=== PATIENT | male | born 1965 | race Caucasian/White ===

== ENCOUNTER 2021-10-01 16:04 | Emergency (ER) | payer SELFPAY ==
[~2021-10-01] VITALS: Ht 182.9 cm; Wt 89.0 kg
[2021-10-01] MEDS ORDERED: SENOKOT S1 TAB PO (16:32)
[2021-10-01] MEDS ORDERED: MIRALAX17 GM PO (16:32)
[2021-10-01] MEDS ORDERED: GABAPENTIN100 MG PO (16:32)
[2021-10-01] MEDS ORDERED: ASPIRIN81 MG PO (16:33)
[2021-10-01] MEDS ORDERED: FLEXERIL5 M1 PO (16:33)
[2021-10-01] MEDS ORDERED: OXYCODONE10 M1 PO (16:34)
[2021-10-01] MEDS ORDERED: PERCOCET 5/325M1 TAB PO (16:34)
[2021-10-01] MEDS ORDERED: PERCOCET 10/31 COMBO PO (16:42)
[2021-10-01 16:44] VITALS: BP 140/91
== END 2021-10-01 16:50 | disposition home or self-care (01) | DRG 948 ==
LOC: ED 16:04
DX: G89.18 Other acute postprocedural pain (principal); S82.202D Unspecified fracture of shaft of left tibia, subsequent encounter for closed fracture with routine healing; S82.402D Unspecified fracture of shaft of left fibula, subsequent encounter for closed fracture with routine healing; V29.9XXD Motorcycle rider (driver) (passenger) injured in unspecified traffic accident, subsequent encounter; Z86.73 Personal history of transient ischemic attack (TIA), and cerebral infarction without residual deficits

== ENCOUNTER 2021-10-19 19:31 | Emergency (ER) | payer SELFPAY ==
[~2021-10-19] VITALS: Ht 182.9 cm; Wt 88.0 kg
[~2021-10-19 19:31] MED LIST: ASPIRIN81 MG PO; FLEXERIL5 M1 PO; GABAPENTIN100 MG PO; MIRALAX17 GM PO; OXYCODONE10 M1 PO; PERCOCET 10/31 COMBO PO; PERCOCET 5/325M1 TAB PO; SENOKOT S1 TAB PO
[2021-10-19] MEDS ORDERED: GABAPENTIN600 MG PO (20:32)
[2021-10-19] MEDS ORDERED: PERCOCET 10/31 COMBO PO (20:32)
[2021-10-19 21:50] VITALS: BP 138/76
== END 2021-10-19 21:45 | disposition home or self-care (01) | DRG 948 ==
LOC: ED 19:31
DX: G89.18 Other acute postprocedural pain (principal); Z86.73 Personal history of transient ischemic attack (TIA), and cerebral infarction without residual deficits

== ENCOUNTER 2022-04-23 02:19 | Emergency (ER) | payer SELFPAY ==
[~2022-04-23] VITALS: Ht 182.9 cm; Wt 88.0 kg
[~2022-04-23 02:19] MED LIST changes: +GABAPENTIN600 MG PO
[2022-04-23 02:24] VITALS: BP 182/89
[2022-04-23] MEDS ORDERED: OXYCODONE15 MG PO (02:28)
[2022-04-23] MEDS ORDERED: LYRICA50 MG PO (02:31)
[2022-04-23] MEDS ORDERED: CEPHALEXIN500 MG PO (02:32)
[2022-04-23] MEDS ORDERED: ELAVIL25 M1 PO (02:33)
[2022-04-23 02:41] VITALS: BP 162/87
[2022-04-23 02:51] LABS: HEMATOCRIT 43.7 % (39.0-50.0); HEMOGLOBIN 14.5 g/dl (14.0-18.0); IMMATURE GRANULOCYTES 0.2 % (0.0-5.0); MEAN CELL VOLUME 88.1 fL CALC (80.0-100.0); MEAN CORPUSCULAR HGB 29.2 pG CALC (26.0-32.0); MEAN CORPUSCULAR HGB CONC 33.2 g/dL CAL (32.0-36.0); NEUT# 3.12 thou/uL (1.82-7.42); RED BLOOD COUNT 4.96 mill/uL (4.70-6.10); RED CELL DISTRI WIDTH 14.5 % (11.5-15.5)
[2022-04-23 03:00] VITALS: BP 157/94
[2022-04-23 03:02] LABS: PROTHROMBIN TIME 10.4 SECONDS (9.0-12.5)
[2022-04-23 03:15] LABS: URINE BILIRUBIN - DIPSTICK NEGATIVE (NEGATIVE); URINE BLOOD DIPSTICK NEGATIVE (NEGATIVE); URINE COLOR YELLOW; URINE GLUCOSE - DIPSTICK NEGATIVE (NEGATIVE); URINE KETONE NEGATIVE (NEGATIVE); URINE LEUK ESTERASE NEGATIVE (NEGATIVE); URINE PH 7.5 (4.5-8.0); URINE PROTEIN - DIPSTICK NEGATIVE (NEG-TRACE); URINE UROBILINOGEN - DIPSTICK 0.2 E.U./dL (0.2)
[2022-04-23 03:16] LABS: D-DIMER 1.02 mg/L (0.19-0.60)
[2022-04-23 03:17] LABS: URINE NITRITE - DIPSTICK NEGATIVE (Negative)
[2022-04-23 03:30] VITALS: BP 155/95
[2022-04-23 03:35] LABS: ALBUMIN 4.1 g/dL (3.2-5.0); ALKALINE PHOSPHATASE 92 u/l (38-126); ANION GAP 9 (6-22 (CALC)); BILIRUBIN, TOTAL 0.5 mg/dL (0.0-1.4); BUN 19 mg/dL (9-20); BUN/CREATININE RATIO 23 (12-20 (CALC)); CARBON DIOXIDE 29 mmol/l (22-30); CHLORIDE 102 mmol/l (95-108); CREATININE 0.8 mg/dL (0.7-1.3); GFR FOR AFR.AMER. > 60 ML/MIN (>=60 (CALC)); GFR OTHER RACES > 60 ML/MIN (>=60 (CALC)); MAGNESIUM 1.9 mg/dL (1.6-2.3); POTASSIUM 3.7 mmol/l (3.5-5.1); SGOT/AST 29 u/l (17-59); SODIUM 136 mmol/l (137-146); TOTAL PROTEIN 6.6 g/dL (6.3-8.2)
[2022-04-23 03:47] LABS: MYOGLOBIN 55 ng/mL (0 - 121)
[2022-04-23 05:44] VITALS: BP 155/95
== END 2022-04-23 05:49 | disposition home or self-care (01) | DRG 880 ==
LOC: ED 02:19
PROVIDERS: Family Medicine
DX: F41.9 Anxiety disorder, unspecified (principal); Z86.73 Personal history of transient ischemic attack (TIA), and cerebral infarction without residual deficits
CPT/HCPCS: J2060; Q9967

== ENCOUNTER 2022-06-10 10:02 | Emergency (ER) | payer SELFPAY ==
[2022-06-10] VITALS (10 sets, daily range): BP systolic 132–203; BP diastolic 66–166
[~2022-06-10] VITALS: Ht 182.9 cm; Wt 86.3 kg
[~2022-06-10 10:02] MED LIST changes: +CEPHALEXIN500 MG PO; +ELAVIL25 M1 PO; +LYRICA50 MG PO; +OXYCODONE15 MG PO
[2022-06-10 10:36] LABS: HEMATOCRIT 48.6 % (39.0-50.0); HEMOGLOBIN 15.5 g/dl (14.0-18.0); IMMATURE GRANULOCYTES 0.1 % (0.0-5.0); MEAN CORPUSCULAR HGB 29.4 pG CALC (26.0-32.0); MEAN CORPUSCULAR HGB CONC 31.9 g/dL CAL (32.0-36.0); NEUT# 11.1 thou/uL (1.82-7.42); RED BLOOD COUNT 5.28 mill/uL (4.70-6.10); RED CELL DISTRI WIDTH 14.1 % (11.5-15.5)
[2022-06-10 11:01] LABS: ALBUMIN 4.5 g/dL (3.2-5.0); BILIRUBIN, TOTAL 0.6 mg/dL (0.0-1.4); BUN 21 mg/dL (9-20); BUN/CREATININE RATIO 25 (12-20 (CALC)); CHLORIDE 111 mmol/l (95-108); CREATININE 0.8 mg/dL (0.7-1.3); GFR FOR AFR.AMER. > 60 ML/MIN (>=60 (CALC)); GFR OTHER RACES > 60 ML/MIN (>=60 (CALC)); POTASSIUM 3.9 mmol/l (3.5-5.1); SGOT/AST 25 u/l (17-59); SODIUM 142 mmol/l (137-146); TOTAL PROTEIN 7.6 g/dL (6.3-8.2)
[2022-06-10 11:13] LABS: ALKALINE PHOSPHATASE 142 u/l (38-126); ANION GAP 15 (6-22 (CALC)); CARBON DIOXIDE 20 mmol/l (22-30)
[2022-06-10 11:32] LABS: TSH, 3RD GENERATION 0.22 uIU/mL (0.47 - 4.68)
[2022-06-10] MEDS ORDERED: ATIVAN1 M1 PO (11:41)
== END 2022-06-10 12:03 | disposition home or self-care (01) | DRG 880 ==
LOC: ED 10:02
PROVIDERS: Family Medicine
DX: F41.9 Anxiety disorder, unspecified (principal); E05.90 Thyrotoxicosis, unspecified without thyrotoxic crisis or storm; Z87.820 Personal history of traumatic brain injury

== ENCOUNTER 2022-07-16 19:26 | Emergency (ER) | payer SELFPAY ==
[~2022-07-16] VITALS: Ht 182.9 cm; Wt 86.4 kg
[2022-07-16] VITALS (10 sets, daily range): BP systolic 128–158; BP diastolic 74–134
[~2022-07-16 19:26] MED LIST changes: +ATIVAN1 M1 PO
[2022-07-16 20:09] LABS: IMMATURE GRANULOCYTES 0.2 % (0.0-5.0); MEAN CELL VOLUME 86.9 fL CALC (80.0-100.0); MEAN CORPUSCULAR HGB 29.5 pG CALC (26.0-32.0); MEAN CORPUSCULAR HGB CONC 33.9 g/dL CAL (32.0-36.0); NEUT# 11.49 thou/uL (1.82-7.42); RED BLOOD COUNT 4.75 mill/uL (4.70-6.10); RED CELL DISTRI WIDTH 13.2 % (11.5-15.5)
[2022-07-16 20:13] LABS: HEMATOCRIT 41.3 % (39.0-50.0)
[2022-07-16 20:31] LABS: ALBUMIN 4.7 g/dL (3.2-5.0); ALKALINE PHOSPHATASE 142 u/l (38-126); ANION GAP 14 (6-22 (CALC)); BILIRUBIN, TOTAL 0.7 mg/dL (0.0-1.4); BUN 16 mg/dL (9-20); BUN/CREATININE RATIO 22 (12-20 (CALC)); CARBON DIOXIDE 22 mmol/l (22-30); CHLORIDE 110 mmol/l (95-108); CREATININE 0.7 mg/dL (0.7-1.3); ETHYL ALCOHOL 0 mg/dl (0-30); GFR FOR AFR.AMER. > 60 ML/MIN (>=60 (CALC)); GFR OTHER RACES > 60 ML/MIN (>=60 (CALC)); MAGNESIUM 2.2 mg/dL (1.6-2.3); POTASSIUM 3.9 mmol/l (3.5-5.1); SGOT/AST 22 u/l (17-59); SODIUM 142 mmol/l (137-146); TOTAL PROTEIN 7.2 g/dL (6.3-8.2)
[2022-07-16 21:01] LABS: TSH, 3RD GENERATION 0.61 uIU/mL (0.47 - 4.68)
[2022-07-16 22:07] LABS: URINE BILIRUBIN - DIPSTICK NEGATIVE (NEGATIVE); URINE BLOOD DIPSTICK NEGATIVE (NEGATIVE); URINE COLOR YELLOW; URINE GLUCOSE - DIPSTICK NEGATIVE (NEGATIVE); URINE KETONE NEGATIVE (NEGATIVE); URINE LEUK ESTERASE NEGATIVE (NEGATIVE); URINE PH 8.5 (4.5-8.0); URINE PROTEIN - DIPSTICK 30 mg/dL (NEG-TRACE); URINE SPECIFIC GRAVITY 1.025; URINE UROBILINOGEN - DIPSTICK 0.2 E.U./dL (0.2)
[2022-07-16 22:13] LABS: URINE NITRITE - DIPSTICK NEGATIVE (Negative)
[2022-07-16 22:19] LABS: URINE RBC 0-2 RBC/hpf (0-5); URINE WBC 0-2 WBC/hpf (0-5)
[2022-07-16] MEDS ORDERED: ATIVAN1 MG PO (23:03)
== END 2022-07-16 23:19 | disposition home or self-care (01) | DRG 880 ==
LOC: ED 19:26
PROVIDERS: Family Medicine
DX: F41.9 Anxiety disorder, unspecified (principal); F32.A Depression, unspecified; G89.18 Other acute postprocedural pain; Z87.820 Personal history of traumatic brain injury

== ENCOUNTER 2022-11-26 23:53 | Emergency (ER) | payer OTHER ==
[~2022-11-26] VITALS: Ht 182.9 cm; Wt 83.0 kg
[~2022-11-26 23:53] MED LIST changes: +ATIVAN1 MG PO
[2022-11-27 00:40] VITALS: BP 93/59
== END 2022-11-27 00:58 | disposition home or self-care (01) ==
LOC: ED 23:53
DX: F32.A Depression, unspecified (principal); S99.922D Unspecified injury of left foot, subsequent encounter; V86.96XD Unspecified occupant of dirt bike or motor/cross bike injured in nontraffic accident, subsequent encounter

== ENCOUNTER 2023-10-26 23:40 | Emergency (ER) | payer OTHER ==
[~2023-10-26] VITALS: Ht 182.9 cm; Wt 80.0 kg
[2023-10-26 23:49] VITALS: BP 142/79
[2023-10-27 00:06] VITALS: BP 127/72
[2023-10-27 00:16] VITALS: BP 131/70
[2023-10-27 00:17] LABS: BASO% 0.3 % (0-3); EOS% 5.4 % (0-8); HEMATOCRIT 39.7 % (39.0-50.0); HEMOGLOBIN 12.9 g/dl (14.0-18.0); IMMATURE GRANULOCYTES 0.1 % (0.0-5.0); LYMPH% 28.7 % (15-41); MEAN CELL VOLUME 91.3 fL CALC (80.0-100.0); MEAN CORPUSCULAR HGB 29.7 pG CALC (26.0-32.0); MEAN CORPUSCULAR HGB CONC 32.5 g/dL CAL (32.0-36.0); MONO% 9.4 % (2-13); NEUT# 4.08 thou/uL (1.82-7.42); NEUT% 56.1 % (42-76); RED BLOOD COUNT 4.35 mill/uL (4.70-6.10)
[2023-10-27 00:27] LABS: ALKALINE PHOSPHATASE 124 u/l (38-126); BILIRUBIN, TOTAL 0.5 mg/dL (0.2-1.3); BUN 24 mg/dL (9-20); BUN/CREATININE RATIO 24 (12-20 (CALC)); CHLORIDE 106 mmol/l (95-108); GFR FOR AFR.AMER. > 60 ML/MIN (>=60 (CALC)); GFR OTHER RACES > 60 ML/MIN (>=60 (CALC)); POTASSIUM 3.8 mmol/l (3.5-5.1); SODIUM 141 mmol/l (137-146); TOTAL PROTEIN 6.2 g/dL (6.3-8.2)
[2023-10-27 00:31] LABS: ANION GAP 12 (6-22 (CALC)); CARBON DIOXIDE 27 mmol/l (22-30); SGOT/AST 42 u/l (17-59)
[2023-10-27 00:41] LABS: ACT PARTIAL THROMBO TIME 22.7 SECONDS (20.0-32.5); INTERNATIONAL NORMALIZED RATIO 1.1 RATIO (0.7-1.3); PROTHROMBIN TIME 10.5 SECONDS (9.0-12.5)
[2023-10-27] MEDS ORDERED: PROCTOFOAM HC10 GM RE (01:52)
[2023-10-27 02:01] VITALS: BP 131/70
[2023-10-27] MEDS ORDERED: ANUCORT-HC25 M1 RE (10:57)
== END 2023-10-27 02:00 | disposition home or self-care (01) ==
LOC: ED 23:40
PROVIDERS: Family Medicine
DX: K62.5 Hemorrhage of anus and rectum (principal); M53.3 Sacrococcygeal disorders, not elsewhere classified

== ENCOUNTER 2024-07-02 20:35 | Emergency (ER) | payer OTHER ==
[~2024-07-02] VITALS: Ht 210.8 cm; Wt 81.0 kg
[~2024-07-02 20:35] MED LIST changes: +ANUCORT-HC25 M1 RE; +GOLYTELY PO; +MELOXICAM15 MG PO; +PRAZOSIN HCL2 M1 PO; +PROCTOFOAM HC10 GM RE; +STOOL SOFTENER; +SUBOXONE1 MI1 SL; +TRAZODONE50 MG PO; +VISTARIL 50MG C50 M1 PO; +WELLBUTRIN150 M1 PO; +[UNRECOGNIZED DRUG - OTHER]
[2024-07-02 20:57] VITALS: BP 130/72
[2024-07-02 21:00] VITALS: BP 125/70
[2024-07-02 21:15] VITALS: BP 122/80
[2024-07-02] MEDS ORDERED: SODIUM CHLORIDE 0.9% 1,000 ML IV ONE ×2 (21:15→22:15)
[2024-07-02] MEDS ORDERED: KETOROLAC TROMETHAMINE 30 MG/ML SDV IV ONE (21:15)
[2024-07-02 21:31] VITALS: BP 136/75
[2024-07-02 21:45] LABS: BASO% 0.5 % (0-3); EOS% 0.5 % (0-8); HEMATOCRIT 36.2 % (39.0-50.0); HEMOGLOBIN 12.6 g/dl (14.0-18.0); LYMPH% 13.3 % (15-41); MEAN CELL VOLUME 86.8 fL CALC (80.0-100.0); MEAN CORPUSCULAR HGB 30.2 pG CALC (26.0-32.0); MEAN CORPUSCULAR HGB CONC 34.8 g/dL CAL (32.0-36.0); MONO% 9.2 % (2-13); NEUT# 2.99 thou/uL (1.82-7.42); NEUT% 76.5 % (42-76); RED BLOOD COUNT 4.17 mill/uL (4.70-6.10); RED CELL DISTRI WIDTH 12.7 % (11.5-15.5)
[2024-07-02 21:55] LABS: ALBUMIN 3.6 g/dL (3.2-5.0); BILIRUBIN, TOTAL 0.9 mg/dL (0.2-1.3); CREATININE 0.9 mg/dL (0.7-1.3); POTASSIUM 4.2 mmol/l (3.5-5.1); TOTAL PROTEIN 5.8 g/dL (6.3-8.2)
[2024-07-02 23:38] LABS: URINE BILIRUBIN - DIPSTICK Negative (NEGATIVE); URINE BLOOD DIPSTICK Negative (NEGATIVE); URINE GLUCOSE - DIPSTICK Negative (NEGATIVE); URINE KETONE Negative (NEGATIVE); URINE LEUK ESTERASE Negative (NEGATIVE); URINE NITRITE - DIPSTICK Negative (Negative); URINE PROTEIN - DIPSTICK Negative (NEG-TRACE); URINE SPECIFIC GRAVITY 1.015; URINE UROBILINOGEN - DIPSTICK 0.2 E.U./dL (0.2)
[2024-07-02 23:44] LABS: URINE COLOR Yellow
[2024-07-02 23:57] VITALS: BP 132/74
[2024-07-03] MEDS ORDERED: HEPARIN SODIUM FLUSH (PORCINE) 100 UNIT/ML 5 ML SYR IV ONE (00:10)
== END 2024-07-03 00:45 | disposition home or self-care (01) ==
LOC: ED 20:35
PROVIDERS: Family Medicine
DX: B34.9 Viral infection, unspecified (principal); C20 Malignant neoplasm of rectum; Z79.60 Long term (current) use of unspecified immunomodulators and immunosuppressants; Z20.822 Contact with and (suspected) exposure to COVID-19